=== PATIENT | female | born 1985 | race Caucasian/White ===

== ENCOUNTER 2022-10-27 12:39 | Emergency (ER) | payer OTHER ==
[2022-10-27 12:58] VITALS: BP 123/81; PULSE 92; RESP 17; TEMP 97.9; BMI 34.0
[2022-10-27 18:56] LABS: HIV INTERPRETATION NEGATIVE (NEGATIVE)
== END 2022-10-27 17:52 | disposition home or self-care (01) ==
LOC: JERFT 12:39
DX: R21 Rash and other nonspecific skin eruption (principal)
CPT/HCPCS: 36415; 86695; 86696; 87389; 99283-25

== ENCOUNTER 2023-01-19 23:11 | Emergency (ER) | payer OTHER ==
[2023-01-19 23:24] VITALS: BP 123/61; PULSE 82; RESP 20; TEMP 98.1; BMI 26.4
== END 2023-01-20 04:17 | disposition home or self-care (01) ==
LOC: JER 23:11
DX: H60.91 Unspecified otitis externa, right ear (principal); R20.8 Other disturbances of skin sensation
CPT/HCPCS: 82962; 99283-25